=== PATIENT | female | born 1965 | race African-American/Black ===

== ENCOUNTER 2019-04-24 13:52 | Emergency (ER) | payer OTHER ==
[2019-04-24 14:02] VITALS: BP 155/92; PULSE 76; TEMP 98.5; BMI 25.8
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
[2019-04-24] MEDS ORDERED: KETOROLAC TROMETHAMINE 60 MG/2 ML VIAL IM ONE (14:51)
[2019-04-24] MEDS ORDERED: METHOCARBAMOL 500 MG TABLET PO ONE (14:52)
[2019-04-24] MEDS ORDERED: KETOROLAC TROMETHAMINE 60 MG/2 ML VIAL ONE (14:54)
[2019-04-24] MEDS ORDERED: METHOCARBAMOL 500 MG TABLET ONE (14:55)
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
== END 2019-04-24 15:14 | disposition home or self-care (01) ==
LOC: JERFT 13:52
PROC: 3E0333Z Introduction of Anti-inflammatory into Peripheral Vein, Percutaneous Approach (ICD-10-PCS; principal; 2019-04-24)
DX: S49.81XA Other specified injuries of right shoulder and upper arm, initial encounter (principal); M25.511 Pain in right shoulder; Y04.2XXA Assault by strike against or bumped into by another person, initial encounter; Y93.F1 Activity, caregiving, bathing; Y92.192 Bathroom in other specified residential institution as the place of occurrence of the external cause; Y99.0 Civilian activity done for income or pay; Y07.9 Unspecified perpetrator of maltreatment and neglect
CPT/HCPCS: 73030-TC-RT-FY; 99281-25

== ENCOUNTER 2019-05-14 19:14 | Emergency (ER) | payer OTHER ==
[2019-05-14 19:26] VITALS: TEMP 98.6; BMI 25.9
[2019-05-14] MEDS ORDERED: METOCLOPRAMIDE HCL INJECTION 10 MG/2 ML VIAL IVPUSH ONE (20:06)
[2019-05-14] MEDS ORDERED: ACETAMINOPHEN 1000 MG/100 ML VIAL (NON FORMULARY) IVPB ONE (20:08)
--- NOTE | 2019-05-14 20:22 | PDOC ---
History of Present Illness - General Chief Complaint: Headache Stated Complaint: HEADACHE/DIZZY Time Seen by Provider: 05/14/19 19:32 History Source: Patient Exam Limitations: No Limitations - History of Present Illness Initial Comments: 05/14/19 20:10 Patient is a 53 year old female with PMH of chronic shoulder pain who presents with sudden onset headache since last night at 8:30pm. Pt states she was sitting at home when the headache began very suddenly. Headache was generalized and throbbing, 8/10 in severity. Headache has been unrelenting. Pt had difficulty sleeping last night due to pain, has been awake since 4am this morning. It has now localized to her left-sided and behind her left orbit. Headache is associated with nausea, decreased appetite, phonophobia, photophobia , and one episode of dizziness a few horus ago. She cannot identify any exacerbating or relieving factors. She has taken tylenol and another pain med ( prescribed for her shoulder pain, pt does not know name) without any relief. Headache is not positional. She denies any fevers, vomiting, vertigo, vision or hearing changes, and no focal neurological deficits. Denies history of headaches/migraines. However, she had one episode a month ago and saw her PCP. This headache was less severe in nature. At the time, her BP was high and she PCP's plan was to get a head CT, however headache subsided on its own and she never received any imaging. Denies family history of migraines or headaches. Denies history of HTN, heart disease, strokes, diabetes. No trauma. Has never seen a neurologist. Allergies: NKDA PCP: PMH: shoulder pain, rotator cuff injury Surgical hx: , tummy tuck, shoulder repair 05/14/19 20:23 Past History - Past Medical History Allergies/Adverse Reactions: Allergies Allergy/AdvReac Type Severity Reaction Status Date / Time almond oil Allergy Difficulty Verified 04/24/19 14:02 Breathing Home Medications: Ambulatory Orders Ferrous Sulfate [Feosol] 325 mg PO DAILY 02/12/13 Methocarbamol [Robaxin -] 500 mg PO BID #14 tablet 04/24/19 Naproxen 500 mg PO BID PRN #20 tablet 04/24/19 Anemia: Yes Asthma: No Cancer: No Cardiac Disorders: No CVA: No COPD: No CHF: No Dementia: No Diabetes: No GI Disorders: No Disorders: No HTN: No Hypercholesterolemia: No Liver Disease: No Seizures: No Thyroid Disease: No - Surgical History Abdominal Surgery: Yes (tummy tuck, csection x 3) Appendectomy: No Cardiac Surgery: No Cholecystectomy: No Lung Surgery: No Neurologic Surgery: No Orthopedic Surgery: Yes (BILATERAL RTC REPAIR) - Psycho Social/Smoking Cessation Hx Smoking Status: No Smoking History: Never smoked Have you smoked in the past 12 months: No Number of Cigarettes Smoked Daily: 0 Hx Alcohol Use: No Drug/Substance Use Hx: No Substance Use Type: None Hx Substance Use Treatment: No Review of Systems - Review of Systems Able to Perform ROS?: Yes Constitutional: No: Symptoms Reported, See HPI, Chills, Diaphoresis, Fever, Loss of Appetite, Malaise, Night Sweats, Weakness, Weight Stable, Unintentional Wgt. Loss, Unexplained wgt Loss, Other HEENTM: No: Symptoms Reported, See HPI, Eye Pain, Blurred Vision, Tearing, Recent change in vision, Double Vision, Cataracts, Ear Pain, Ocular Prothesis, Ear Discharge, Nose Pain, Nose Congestion, Tinnitus, Nose Bleeding, Hearing Loss , Throat Pain, Throat Swelling, Mouth Pain, Dental Problems, Difficulty Swallowing, Mouth Swelling, Other Respiratory: No: Symptoms reported, See HPI, Cough, Orthopnea, Shortness of Breath, SOB with Exertion, SOB at Rest, Stridor, Wheezing, Productive cough, Hemoptysis, Other Cardiac (ROS): No: Symptoms Reported, See HPI, Chest Pain, Edema, Irregular Heart Rate, Lightheadedness, Palpitations, Syncope, Chest Tightness, Other ABD/GI: Yes: Nausea, Poor Appetite. No: Symptoms Reported, See HPI, Abdominal Distended, Abd. Pain w/ defecation, Blood Streaked Bowels, Constipated, Diarrhea , Difficulty Swallowing, Poor Fluid Intake, Rectal Bleeding, Vomiting, Indigestion, Abdominal cramping, Tarry Stools, Other Neurological: Yes: Headache, Dizziness, Other (Photophobia, phonophobia) *Physical Exam - Vital Signs Last Vital Signs Temp Pulse Resp BP Pulse Ox 98.6 F 82 19 161/97 100 05/14/19 19:21 05/14/19 19:21 05/14/19 19:21 05/14/19 19:21 05/14/19 19:21 - Physical Exam General Appearance: Yes: Nourished, Appropriately Dressed. No: Apparent Distress, Alcohol on Breath, Intoxicated HEENT: positive: EOMI, LILA, Normal ENT Inspection, Normal Voice, Symmetrical, Pharynx Normal, Pale Conjunctivae Neck: positive: Trachea midline, Normal Thyroid, Supple Respiratory/Chest: positive: Lungs Clear, Normal Breath Sounds. negative: Respiratory Distress, Crackles, Wheezing Cardiovascular: positive: Regular Rhythm, Regular Rate, S1, S2. negative: Edema , JVD, Murmur Vascular Pulses: Dorsalis-Pedis (R): 2+, Doralis-Pedis (L): 2+ Gastrointestinal/Abdominal: positive: Normal Bowel Sounds, Soft. negative: Tender Extremity: positive: Normal Capillary Refill, Normal Inspection, Normal Range of Motion. negative: Tender Neurologic: positive: overweaver II-XII NML intact, Fully Oriented, Alert, Normal Mood/ Affect, Normal Response, Motor Strength 5/5, Finger to Nose (Intact). negative : EOM Palsy, Facial Droop, Numbness, Sensory Deficit, Confused, Disoriented Deep Tendon Reflexes: Ankle (L): 2+, Ankle (R): 2+, Knee (L): 2+, Knee (R): 2+, Bicep (L): 2+, Bicep (R): 2+, Tricep (L): 2+, Tricep (R): 2+ ED Treatment Course - LABORATORY CBC & Chemistry Diagram: 05/14/19 21:00 05/14/19 21:00 - RADIOLOGY Radiology Studies Ordered: Category Date Time Status HEAD CT WITHOUT CONTRAST [CT] Stat CT Scan 05/14/19 20:02 Ordered Medical Decision Making - Medical Decision Making 05/14/19 20:28 - CBC, CMP - Head CT >> Give IV tylenol, benadryl, reglan >> Out of window to show acute hemorrhage, pt will need LP and agrees to procedure. Discharge - Discharge Information Problems reviewed: Yes Clinical Impression/Diagnosis: Headache Qualifiers: Headache type: unspecified Headache chronicity pattern: acute headache Intractability: not intractable Qualified Code(s): R51 - Headache Condition: Stable Disposition: HOME - Admission No - Follow up/Referral Referrals: Anand Toussaint MD [Staff Physician] - - Patient Discharge Instructions Additional Instructions: You were evaluated in the ER for headaches. A CAT scan of your head and a Lumbar Puncture were performed and did not show any signs of acute disease. We recommend you follow up with a neurologist for further evaluation of your headaches. We provided you with a referral to see Dr. Toussaint. Please follow up with your primary care provider in one week. Return to the ER if you experience recurring or worsening headaches, dizziness, seizures, vision changes, weakness or numbness. - Post Discharge Activity
[2019-05-14] MEDS ORDERED: METOCLOPRAMIDE HCL INJECTION 10 MG/2 ML VIAL ONE (20:47)
[2019-05-14] MEDS ORDERED: ACETAMINOPHEN INJECTION 100 ML IVPB ONE (20:48)
[2019-05-14 21:17] LABS: EOS % 0.4 % (0-4.5); HEMATOCRIT 36.5 % (32.4-45.2); HEMOGLOBIN 11.5 GM/dL (10.7-15.3); LYMPH % 23.5 % (8-40); MCH 23.3 pg (25.7-33.7); MCHC 31.6 g/dl (32.0-36.0); MEAN CELL VOLUME 73.9 fl (80-96); MEAN PLT VOLUME 11.2 fl (7.5-11.1); MONO % 6.7 % (3.8-10.2); NEUT % 68.4 % (42.8-82.8); PLATELET COUNT 159 K/MM3 (134-434); RBC 4.94 M/mm3 (3.60-5.2); RDW 14.1 % (11.6-15.6); WHITE BLOOD COUNT 4.7 K/mm3 (4.0-10.0)
[2019-05-14 21:47] LABS: ALBUMIN 3.8 g/dl (3.4-5.0); BILIRUBIN,TOTAL 0.5 mg/dL (0.2-1); BLOOD UREA NITROGEN 15.3 mg/dL (7-18); CALCIUM 9.4 mg/dL (8.5-10.1); CREATININE 0.9 mg/dL (0.55-1.3); POTASSIUM 3.8 mmol/L (3.5-5.1); TOT PROT 7.4 g/dl (6.4-8.2)
--- NOTE | 2019-05-14 22:33 | PDOC ---
Documentation entered by Rory Cardenas SCRIBE, acting as scribe for Cheo Velasquez MD. Cheo Velasquez MD: This documentation has been prepared by the Theresa russo Nirvannie, SCRIBE, under my direction and personally reviewed by me in its entirety. I confirm that the documentation accurately reflects all work, treatment, procedures, and medical decision making performed by me. Attending Attestation - Resident Resident Name: Sarah Perez - ED Attending Attestation I have performed the following: I have examined & evaluated the patient, The case was reviewed & discussed with the resident, I agree w/resident's findings & plan, Exceptions are as noted - HPI HPI: 05/14/19 20:51 CC: Headache HPI: 53 years old with sudden onset headache states this is 1 of the worst headache she has had her head. Patient does have headaches weekly but states they are not as bad as this. She endorses some nausea and some mild photophobia no fever no neck stiffness no vomiting no rash Allergies: NKDA 05/15/19 00:23 - Physicial Exam PE: 05/15/19 00:13 Vitals: Triage Vital signs reviewed General Appearance: No acute distress, well nourished well developed, Head: Atraumatic, Eyes: Pupils equal reactive round, extraocular movement intact Neck: Supple; no Nucal rigidity Chest Wall: Nontender Cardiac: Regular rate and rhythym, no murmurs, no rubs, no gallops, Lungs: Clear to auscultation bilateral, good air movement bilaterally, Abdomen: Soft, non distended, normal bowel sounds, non tender to palpation Extremities: Full range of motion to all extremities, no cyanosis, clubbing, or edema Skin: Warm and dry, no rashes or lesions, no rash, no petechiae Neuro: AOX3; cranial Nerves 2-12 grossly intact, strength intact to all extremities, sensation intact to all extremities, gait normal Psych: Normal mood, normal affect - Medical Decision Making 05/15/19 00 53 years old with sudden onset headache states this is 1 of the worst headache she has had her head. Patient does have headaches weekly but states they are not as bad as this. She endorses some nausea and some mild photophobia no fever no neck stiffness no vomiting no rash Stat head CT performed with no evidence of bleed patient treated symptomatically with Tylenol Reglan Benadryl still having mild headache given acute onset with description of worst headache decision made to perform LP to rule out xanthochromia and evaluation of subarachnoid Patient consented for LP LP performed with no complications patient tolerated procedure well see procedure note 05/15/19 02:54 Reevaluation headache improved no evidence of xanthochromia on lumbar puncture patient feels better Low suspicion for subarachnoid no suspicion for meningitis at this time Findings, the need for follow-up and strict return instructions discussed with patient.
[2019-05-14] MEDS ORDERED: LIDOCAINE HCL 1%, 10 MG/ML (50 mL VIAL) SQ ONE (22:37)
[2019-05-14] MEDS ORDERED: MIDAZOLAM HCL 2 MG/2 ML SINGLE DOSE VIAL IVPUSH ONE ×2 (22:37→23:40)
[2019-05-14] MEDS ORDERED: LIDOCAINE HCL 1%, 10 MG/ML (20ML VIAL) ONE (22:40)
[2019-05-14] MEDS ORDERED: MIDAZOLAM HCL 2 MG/2 ML SINGLE DOSE VIAL ONE ×2 (22:41→23:41)
[2019-05-14 23:12] LABS: INR 1.21 (0.83-1.09); PROTHROMBIN TIME (PATIENT) 14.3 SEC (9.7-13.0)
[2019-05-15 01:43] LABS: BF GLUCOSE (CSF ONLY) 63 mg/dL (40-70)
--- NOTE | 2019-05-15 02:07 | PDOC ---
*Physical Exam - Vital Signs Last Vital Signs Temp Pulse Resp BP Pulse Ox 98.6 F 82 19 161/97 100 05/14/19 19:21 05/14/19 19:21 05/14/19 19:21 05/14/19 19:21 05/14/19 19:21 ED Treatment Course - LABORATORY CBC & Chemistry Diagram: 05/14/19 21:00 05/14/19 21:00 - ADDITIONAL ORDERS Additional order review: Laboratory Results 05/14/19 05/14/19 05/14/19 23:52 22:15 22:15 PT with INR 14.30 H INR 1.21 H PTT (Actin FS) 32.3 Sodium Potassium Chloride Carbon Dioxide Anion Gap BUN Creatinine Est GFR (CKD-EPI)AfAm Est GFR (CKD-EPI)NonAf Random Glucose Calcium Total Bilirubin AST ALT Alkaline Phosphatase Total Protein Albumin CSF Glucose 63 CSF Total Protein 46 H 05/14/19 21:00 PT with INR INR PTT (Actin FS) Sodium 141 Potassium 3.8 Chloride 108 H Carbon Dioxide 23 Anion Gap 9 BUN 15.3 Creatinine 0.9 Est GFR (CKD-EPI)AfAm 83.43 Est GFR (CKD-EPI)NonAf 71.98 Random Glucose 88 Calcium 9.4 Total Bilirubin 0.5 AST 15 ALT 21 Alkaline Phosphatase 71 Total Protein 7.4 Albumin 3.8 CSF Glucose CSF Total Protein 05/14/19 21:00 RBC 4.94 MCV 73.9 L MCHC 31.6 L RDW 14.1 MPV 11.2 H Neutrophils % 68.4 Lymphocytes % 23.5 Monocytes % 6.7 Eosinophils % 0.4 Basophils % 1.0 - Medications Given in the ED: ED Medications Discontinued Medications Generic Name Dose Route Start Last Admin Trade Name Freq PRN Reason Stop Dose Admin Acetaminophen 1,000 mg 05/14/19 20:08 05/14/19 21:00 Ofirmev Injection - IVPB 05/14/19 20:09 1,000 mg ONCE ONE Administration Diphenhydramine HCl 12.5 mg 05/14/19 20:06 05/14/19 21:00 Benadryl Injection - IVPUSH 05/14/19 20:07 12.5 mg ONCE ONE Administration Lidocaine HCl 20 ml 05/14/19 22:37 05/14/19 22:48 Xylocaine 1% SQ 05/14/19 22:38 20 ml ONCE ONE Administration Metoclopramide HCl 10 mg 05/14/19 20:06 05/14/19 21:00 Reglan Injection - IVPUSH 05/14/19 20:07 10 mg ONCE ONE Administration Midazolam HCl 1 mg 05/14/19 22:37 05/14/19 22:48 Versed - IVPUSH 05/14/19 22:38 1 mg ONCE ONE Administration Midazolam HCl 2 mg 05/14/19 23:40 05/14/19 23:51 Versed - IVPUSH 05/14/19 23:41 2 mg ONCE ONE Administration Discharge - Discharge Information Clinical Impression/Diagnosis: Headache Qualifiers: Headache type: unspecified Headache chronicity pattern: acute headache Intractability: not intractable Qualified Code(s): R51 - Headache Condition: Stable Disposition: HOME - Follow up/Referral Referrals: Anand Toussaint MD [Staff Physician] - - Patient Discharge Instructions Additional Instructions: You were evaluated in the ER for headaches. A CAT scan of your head and a Lumbar Puncture were performed and did not show any signs of acute disease. We recommend you follow up with a neurologist for further evaluation of your headaches. We provided you with a referral to see Dr. Toussaint. Please follow up with your primary care provider in one week. Return to the ER if you experience recurring or worsening headaches, dizziness, seizures, vision changes, weakness or numbness. - Post Discharge Activity
[2019-05-15 02:45] LABS: CSF APPEARANCE CLEAR; CSF COLOR COLORLESS; CSF WBC 0
[2019-05-15 02:46] LABS: CSF APPEARANCE CLEAR; CSF COLOR COLORLESS
[2019-05-15 02:47] LABS: CSF WBC 0
[2019-05-15 03:38] VITALS: BP 132/88; PULSE 60
== END 2019-05-15 03:39 | disposition home or self-care (01) ==
LOC: JER 19:14
CPT/HCPCS: 36415; 70450-TC; 80053; 82945; 84157; 85025; 85610; 85730; 87070; 87205; 99282-25; J0131

== ENCOUNTER 2023-09-18 12:08 | Emergency (ER) | payer OTHER ==
[2023-09-18 12:22] VITALS: BP 149/88; PULSE 103; RESP 19; TEMP 98.8; BMI 27.4
[2023-09-18] MEDS ORDERED: DIPHTH,PERTUSS(ACELL),TET 0.5 ML DISP.SYRIN IM ONE (14:51)
[2023-09-18] MEDS: DIPHTH,PERTUSS(ACELL),TET 0.5 ML DISP.SYRIN IM ONE (14:55)
== END 2023-09-18 15:17 | disposition home or self-care (01) ==
LOC: JERFT 12:08
PROC: 3E0234Z Introduction of Serum, Toxoid and Vaccine into Muscle, Percutaneous Approach (ICD-10-PCS; principal; 2023-09-18)
DX: S71.151A Open bite, right thigh, initial encounter (principal); W54.0XXA Bitten by dog, initial encounter; Z23 Encounter for immunization
CPT/HCPCS: 90471; 90715; 99283-25

== ENCOUNTER 2023-09-21 11:44 | Emergency (ER) | payer OTHER ==
[2023-09-21 11:58] VITALS: BP 145/94; PULSE 101; RESP 20; TEMP 98.7; BMI 27.4
[2023-09-21] MEDS ORDERED: RABIES VACCINE (PCEC)/PF 2.5 UNIT/VIAL IM ONE ×2 (12:31→12:41)
[2023-09-21] MEDS: RABIES VACCINE (PCEC)/PF 2.5 UNIT/VIAL IM ONE (12:56)
== END 2023-09-21 13:22 | disposition home or self-care (01) ==
LOC: JERFT 11:44
PROC: 3E0234Z Introduction of Serum, Toxoid and Vaccine into Muscle, Percutaneous Approach (ICD-10-PCS; principal; 2023-09-21)
DX: Z29.14 Encounter for prophylactic rabies immune globulin (principal)
CPT/HCPCS: 90675; 99281-25

== ENCOUNTER 2023-09-24 09:12 | Emergency (ER) | payer OTHER ==
[2023-09-24 09:18] VITALS: BP 135/79; PULSE 84; RESP 18; TEMP 98.1; BMI 27.4
[2023-09-24] MEDS ORDERED: RABIES VACCINE (PCEC)/PF 2.5 UNIT/VIAL IM ONE (09:42)
[2023-09-24] MEDS: RABIES VACCINE (PCEC)/PF 2.5 UNIT/VIAL IM ONE (09:43)
== END 2023-09-24 09:53 | disposition home or self-care (01) ==
LOC: JERFT 09:12 → JER 09:12 → JERFT 09:53
PROC: 3E0234Z Introduction of Serum, Toxoid and Vaccine into Muscle, Percutaneous Approach (ICD-10-PCS; principal; 2023-09-24)
DX: Z29.14 Encounter for prophylactic rabies immune globulin (principal)
CPT/HCPCS: 90675; 99281-25

== ENCOUNTER 2023-09-28 10:18 | Emergency (ER) | payer OTHER ==
[2023-09-28 10:25] VITALS: BP 123/72; PULSE 92; RESP 18; TEMP 97.6; BMI 27.4
[2023-09-28] MEDS ORDERED: RABIES VACCINE (PCEC)/PF 2.5 UNIT/VIAL IM ONE (11:07)
[2023-09-28] MEDS: RABIES VACCINE (PCEC)/PF 2.5 UNIT/VIAL IM ONE (11:13)
== END 2023-09-28 11:31 | disposition home or self-care (01) ==
LOC: JERFT 10:18
PROC: 3E0234Z Introduction of Serum, Toxoid and Vaccine into Muscle, Percutaneous Approach (ICD-10-PCS; principal; 2023-09-28)
DX: Z29.14 Encounter for prophylactic rabies immune globulin (principal)
CPT/HCPCS: 90675; 99281-25

== ENCOUNTER 2023-10-05 10:41 | Emergency (ER) | payer OTHER ==
[2023-10-05 10:57] VITALS: BP 136/79; PULSE 67; RESP 18; TEMP 98.1; BMI 27.4
[2023-10-05] MEDS ORDERED: RABIES VACCINE (PCEC)/PF 2.5 UNIT/VIAL IM ONE (11:11)
[2023-10-05] MEDS: RABIES VACCINE (PCEC)/PF 2.5 UNIT/VIAL IM ONE (11:15)
== END 2023-10-05 11:21 | disposition home or self-care (01) ==
LOC: JERFT 10:41
PROC: 3E0234Z Introduction of Serum, Toxoid and Vaccine into Muscle, Percutaneous Approach (ICD-10-PCS; principal; 2023-10-05)
DX: Z29.14 Encounter for prophylactic rabies immune globulin (principal)
CPT/HCPCS: 90675; 99281-25